=== PATIENT | male | born 1985 | race Caucasian/White ===

== ENCOUNTER 2016-09-23 16:34 | Emergency (ER) | payer OTHER ==
[~2016-09-23] VITALS: Ht 188 cm; Wt 151.4 kg
[~2016-09-23 16:34] MED LIST: HYDR-3240 PO; LACT1CAP35 PO; METAMUCIL425 GM PO; None at this time
[2016-09-23 17:58] LABS: BLOOD UREA NITROGEN 11 mg/dL (7-18)
[2016-09-23 21:11] VITALS: BP 157/67
== END 2016-09-23 21:35 | disposition home or self-care (01) ==
LOC: ED 21:00
DX: R10.31 Right lower quadrant pain (principal); R50.9 Fever, unspecified
CPT/HCPCS: 36415; 74176; 80048; 81003; 82040; 85025; 99285